=== PATIENT | female | born 1950 | race Two or more races ===

== ENCOUNTER 2019-08-11 12:49 | Emergency (ER) | payer OTHER ==
[~2019-08-11] VITALS: Ht 152.4 cm; Wt 85.7 kg
[2019-08-11] MEDS ORDERED: SYNTHROID75 MCG (13:22)
[2019-08-11] MEDS ORDERED: PLAVIX75 MG (13:22)
[2019-08-11] MEDS ORDERED: AVALIDE (13:24)
[2019-08-11] MEDS ORDERED: FORTAMET500 MG (13:24)
[2019-08-11] MEDS ORDERED: SINGLE USE SWA1 EACH (13:25)
[2019-08-11] MEDS ORDERED: LIPITOR20 MG (13:25)
[2019-08-11] MEDS ORDERED: [UNRECOGNIZED DRUG - OTHER] (13:26)
[2019-08-11] MEDS ORDERED: FOLIC ACID20 MG (13:26)
[2019-08-11] MEDS ORDERED: CHOLECALCIFEROL 1000 MG (13:27)
[2019-08-11] MEDS ORDERED: LANTUS SOL100 UNIT/1 (13:27)
[2019-08-11] MEDS ORDERED: HUMALOG100 UNIT/2 (13:28)
== END 2019-08-11 15:14 | disposition home or self-care (01) ==
LOC: ER 12:49
DX: M75.52 Bursitis of left shoulder (principal); E11.65 Type 2 diabetes mellitus with hyperglycemia

== ENCOUNTER 2020-03-26 14:36 | Outpatient (CLI) | payer OTHER ==
[~2020-03-26 14:36] MED LIST: AVALIDE; CHOLECALCIFEROL 1000 MG; FOLIC ACID20 MG; FORTAMET500 MG; HUMALOG100 UNIT/2; LANTUS SOL100 UNIT/1; LIPITOR20 MG; PLAVIX75 MG; SINGLE USE SWA1 EACH; SYNTHROID75 MCG; [UNRECOGNIZED DRUG - OTHER]
== END 2020-03-26 14:51 | disposition home or self-care (01) ==
LOC: RAD 14:36
PROVIDERS: ATTEND Internal Medicine Cardiovascular Disease
DX: M43.17 Spondylolisthesis, lumbosacral region (principal); K80.80 Other cholelithiasis without obstruction; M46.47 Discitis, unspecified, lumbosacral region

== ENCOUNTER 2020-04-04 07:33 | Outpatient (CLI) | payer OTHER | END 2020-04-04 14:09 | disposition home or self-care (01) | LOC: NUCLEAR 07:33 | PROVIDERS: ATTEND Internal Medicine Cardiovascular Disease | DX: R07.89 Other chest pain (principal); I10 Essential (primary) hypertension; J44.9 Chronic obstructive pulmonary disease, unspecified; E11.9 Type 2 diabetes mellitus without complications ==

== ENCOUNTER 2022-05-17 16:00 | Emergency (ER) | payer OTHER ==
[~2022-05-17] VITALS: Ht 152.4 cm; Wt 81.6 kg
[~2022-05-17 16:00] MED LIST changes: +RELAFEN DS1000 MG PO
[2022-05-17] MEDS ORDERED: GLUMETZA1000 MG PO (16:25)
[2022-05-17] MEDS ORDERED: VAZALORE81 MG PO (16:26)
[2022-05-17] MEDS ORDERED: SINGULAIR4 M1 PO (16:26)
[2022-05-17] MEDS ORDERED: AVAPRO75 MG PO (16:26)
[2022-05-17] MEDS ORDERED: LEVOTHYROXINE75 MC1 PO (16:27)
[2022-05-17] MEDS ORDERED: PEPCID AC20 MG PO (16:27)
[2022-05-17] MEDS ORDERED: HYDRODIURIL12.5 MG PO (16:27)
[2022-05-17] MEDS ORDERED: PLAVIX75 MG PO (16:27)
[2022-05-17] MEDS ORDERED: LANTUS SOL100 UNIT/1 SQ (16:28)
== END 2022-05-17 19:49 | disposition home or self-care (01) ==
LOC: ER 16:00
DX: J98.01 Acute bronchospasm (principal); Z91.041 Radiographic dye allergy status

== ENCOUNTER 2023-02-08 08:07 | Emergency (ER) | payer OTHER ==
[~2023-02-08] VITALS: Ht 149.9 cm; Wt 77.1 kg
[~2023-02-08 08:07] MED LIST changes: +AVAPRO75 MG PO; +GLUMETZA1000 MG PO; +HYDRODIURIL12.5 MG PO; +LANTUS SOL100 UNIT/1 SQ; +LEVOTHYROXINE75 MC1 PO; +PEPCID AC20 MG PO; +PLAVIX75 MG PO; +SINGULAIR4 M1 PO; +VAZALORE81 MG PO
== END 2023-02-08 11:26 | disposition home or self-care (01) ==
LOC: ER 08:07
DX: E11.649 Type 2 diabetes mellitus with hypoglycemia without coma (principal); Z79.4 Long term (current) use of insulin; Z91.041 Radiographic dye allergy status; I11.9 Hypertensive heart disease without heart failure

== ENCOUNTER 2024-02-16 07:37 | Emergency (ER) | payer OTHER ==
[~2024-02-16] VITALS: Ht 149.9 cm; Wt 79.4 kg
[2024-02-16] MEDS ORDERED: ECOTRIN81 MG (07:55)
[2024-02-16] MEDS ORDERED: METFORMIN HCL1000 M2 (07:55)
[2024-02-16] MEDS ORDERED: SINGULAIR10 MG PO (07:55)
[2024-02-16] MEDS ORDERED: HYDROCHLOROTH12.5 M2 PO (07:56)
[2024-02-16] MEDS ORDERED: PEPCID AC20 MG (07:57)
[2024-02-16] MEDS ORDERED: LIPITOR20 MG PO (07:58)
[2024-02-16] MEDS ORDERED: HUMALOG100 UNIT/2 SQ (07:59)
[2024-02-16] MEDS ORDERED: KETOROLAC TROMETHAMINE 30 MG VIAL IM ONE (08:30)
== END 2024-02-16 10:02 | disposition home or self-care (01) ==
LOC: ER 07:39 → EDBD 07:57 → ER 07:57
DX: M12.572 Traumatic arthropathy, left ankle and foot (principal); W22.8XXA Striking against or struck by other objects, initial encounter; Y93.89 Activity, other specified; Y92.018 Other place in single-family (private) house as the place of occurrence of the external cause; Z91.041 Radiographic dye allergy status

== ENCOUNTER → 2024-02-29 | Emergency (ER) | payer OTHER ==
[~2024-02-29] VITALS: Ht 142.2 cm; Wt 81.6 kg
[~2024-02-29] MED LIST changes: +ECOTRIN81 MG; +HUMALOG100 UNIT/2 SQ; +HYDROCHLOROTH12.5 M2 PO; +LIPITOR20 MG PO; +METFORMIN HCL1000 M2; +PEPCID AC20 MG; +SINGULAIR10 MG PO
== END | disposition home or self-care (01) ==
LOC: ER 10:33
DX: S90.32XA Contusion of left foot, initial encounter (principal); W22.8XXA Striking against or struck by other objects, initial encounter; Y93.89 Activity, other specified; Y92.018 Other place in single-family (private) house as the place of occurrence of the external cause; Z91.041 Radiographic dye allergy status; Z88.6 Allergy status to analgesic agent; E03.8 Other specified hypothyroidism; E11.9 Type 2 diabetes mellitus without complications; Z79.4 Long term (current) use of insulin

== ENCOUNTER 2024-09-04 00:08 | Emergency (ER) | payer OTHER ==
[~2024-09-04] VITALS: Ht 152.4 cm; Wt 68.0 kg
[2024-09-04] MEDS ORDERED: JARDIANCE25 MG PO (00:26)
[2024-09-04] MEDS ORDERED: KETOROLAC TROMETHAMINE 30 MG VIAL IV STA (01:36)
[2024-09-04] MEDS ORDERED: KETOROLAC TROMETHAMINE 30 MG VIAL ONE (01:36)
[2024-09-04 01:56] LABS: HEMATOCRIT 29.9 % (36.0-45.00); HEMOGLOBIN 9.9 g/dL (12.0-15.00); MEAN CELL VOLUME 88.3 fL (80.00-100.00); MEAN CORPUSCULAR HEMOGLOBIN 29.4 pg (27.00-32.0); MEAN CORPUSCULAR HGB CONC 33.3 g/dl (32.0-36.0); PLATELET COUNT 194 K/uL (150-450); RED BLOOD COUNT 3.38 M/uL (4.00-6.00); RED CELL DISTRIBUTION WIDTH 13.8 % (11.5-14.5)
[2024-09-04 02:47] LABS: ALBUMIN 3.5 gm/dL (3.4-5.0); BILIRUBIN TOTAL 0.22 mg/dL (0.3-1.2); CALCIUM 9.1 mg/dL (8.5-10.1); CREATININE SERUM 1.56 mg/dL (0.55-1.02); GFR 32.62; GLOBULINA 3.5 G/DL (2.4-3.5); POTASSIUM 5.04 mEq/L (3.5-5.1)
[2024-09-04] MEDS ORDERED: MELOXICAM15 MG PO (04:32)
== END 2024-09-04 04:48 ==
LOC: ER 00:08
PROVIDERS: General Practice
DX: R07.89 Other chest pain (principal); R00.1 Bradycardia, unspecified; E11.9 Type 2 diabetes mellitus without complications; Z79.84 Long term (current) use of oral hypoglycemic drugs; I10 Essential (primary) hypertension; E03.9 Hypothyroidism, unspecified; Z88.8 Allergy status to other drugs, medicaments and biological substances; Z87.09 Personal history of other diseases of the respiratory system
CPT/HCPCS: 36415; 71046; 93005; 96365; 99283; J1885

== ENCOUNTER 2024-10-02 16:56 | Emergency (ER) | payer OTHER ==
[~2024-10-02] VITALS: Ht 152.4 cm; Wt 71.2 kg
[~2024-10-02 16:56] MED LIST changes: +JARDIANCE25 MG PO; +MELOXICAM15 MG PO
== END 2024-10-02 20:13 | disposition home or self-care (01) ==
LOC: ER 16:56
DX: M25.552 Pain in left hip (principal); M25.551 Pain in right hip; G30.8 Other Alzheimer's disease; F02.80 Dementia in other diseases classified elsewhere, unspecified severity, without behavioral disturbance, psychotic disturbance, mood disturbance, and anxiety; Z91.041 Radiographic dye allergy status; Z88.6 Allergy status to analgesic agent; J45.909 Unspecified asthma, uncomplicated; E03.8 Other specified hypothyroidism; I25.10 Atherosclerotic heart disease of native coronary artery without angina pectoris; E11.9 Type 2 diabetes mellitus without complications; Z79.4 Long term (current) use of insulin; M85.88 Other specified disorders of bone density and structure, other site

== ENCOUNTER 2025-01-04 23:11 | Emergency (ER) | payer OTHER ==
[~2025-01-04] VITALS: Ht 152.4 cm; Wt 72.6 kg
== END 2025-01-05 04:30 | disposition home or self-care (01) ==
LOC: ER 23:11
DX: T45.2X1A Poisoning by vitamins, accidental (unintentional), initial encounter (principal); Z88.6 Allergy status to analgesic agent; Z91.041 Radiographic dye allergy status